=== PATIENT | male | born 2000 | race Caucasian/White ===

== ENCOUNTER 2018-01-08 19:33 | Emergency (ER) | payer BC ==
[~2018-01-08] VITALS: Ht 188 cm; Wt 75.9 kg
[2018-01-08 19:46] VITALS: TEMP 36.6; Ht 188 cm; Wt 75.9 kg
--- NOTE | 2018-01-08 21:52 | DIAGNOSTIC IMAGING REPORT ---
(TESTICULAR) SCROTUM-CONT HISTORY: Pain Left testicle pain COMPARISON: None. FINDINGS: Right testis: Maximum dimension 5.1 cm. Normal vascular flow Left testis: Maximum dimension 4.6 cm. Normal vascular flow IMPRESSION: Normal testicular ultrasound. The above report was generated using voice recognition software. It may contain grammatical, syntax or spelling errors. Electronically signed by: Pedro Singh M.D. 01/08/2018 9:51 PM Dictated Date/Time: 01/08/2018 9:50 PM
[2018-01-08 22:39] VITALS: BP 120/59; PULSE 75; O2SAT 98
--- NOTE | 2018-01-08 23:11 | EMERGENCY ROOM VISIT NOTE ---
History First contact with patient: 19:53 Chief Complaint: TESTICULAR PAIN Stated Complaint: TESTICULAR PAIN AND LUMP Nursing Triage Summary: patient reports testicular pain since Wednesday History of Present Illness The patient is a 17 year old male who presents to the Emergency Room with complaints of left testicle pain for the past 3-4 days. The patient states the discomfort is intermittent and dull. At one point he felt like he may have had a lump or a mass on the testicle, and when the pain returns today he elected to come to the ER for evaluation. The patient is sexually active, and evidently monogamous with this partner. He reports about a week ago he went to an urgent care clinic with the symptoms, was diagnosed with urethritis, and was given Zithromax and Rocephin. No imaging studies were performed at that time. The patient has been using the bathroom is normal, and he is without urethral drainage, discharge, or pain. He does not have abdominal or back pain. No hematuria. He rates his discomfort at this time is 0/10. Review of Systems More than 10 systems were reviewed and otherwise negative with the exception of history of present illness. Past Medical/Surgical History No pertinent chronic medical disease Family History No pertinent family history Social History Smoking Status: Never Smoker Occupation Status: [employer] student Current/Historical Medications No Active Prescriptions or Reported Meds Physical Exam Vital Signs Date Time Temp Pulse Resp B/P (MAP) Pulse Ox O2 Delivery O2 Flow Rate FiO2 01/08/18 22:39 75 18 120/59 98 01/08/18 19:46 36.6 82 18 121/73 96 Room Air Physical Exam VITALS: Vitals are noted on the nurse's note and reviewed by myself. Vital signs stable. GENERAL: Well-developed, well-nourished, white male, who is in no acute distress and resting comfortably. Patient is cooperative with the examination. HEART: Regular rate and rhythm without murmurs gallops or rubs. LUNGS: Clear to auscultation bilaterally without wheezes, rales or rhonchi. No retractions or accessory muscle use. ABDOMEN: Positive normal bowel sounds x 4. Soft, nontender, without masses or organomegaly. No guarding or rebound tenderness. : Normal-appearing external male genitalia without urethral drainage, discharge, or lesion. No significant testicle tenderness, mass, or lesions noted. No hernia or lower abdominal pain noted. Medical Decision & Procedures ER Provider Diagnostic Interpretation: (TESTICULAR) SCROTUM-CONT HISTORY: Pain Left testicle pain COMPARISON: None. FINDINGS: Right testis: Maximum dimension 5.1 cm. Normal vascular flow Left testis: Maximum dimension 4.6 cm. Normal vascular flow IMPRESSION: Normal testicular ultrasound. ED Course Physical exam and history were performed. Nursing notes, EMR, and Medication List were personally reviewed. Patient appears to have testicle pain primarily on the left for the past few days. His discomfort at the moment is a 0/10. He was recently treated for urethritis, but has not had ultrasound. Ultrasound was performed and is without significant acute findings. Overall the patient appears well for discharge home. He will need to follow with [facility] for further care and management. He was otherwise asked to try conservative over- the-counter medication. The patient was pleased with this plan and voiced understanding. The chart was completed utilizing [employer] Voice Recognition Software. Grammatical errors, random word insertions, pronoun errors, and incomplete sentences are an occasional consequence of this system due to software limitations, ambient noise, and hardware issues. Any formal questions or concerns about the content, text, or information contained within the body of this dictation should be directly addressed to the provider for clarification. . Medical Decision Differential diagnosis: Etiologies such as torsion, intermittent torsion, STD, mass, infection, hernia, hydrocele, epididymitis, trauma, intra-abdominal process, as well as others were entertained. Impression Primary Impression: Pain in testicle Departure Information Dispostion Home / Self-Care Condition GOOD Prescriptions No Active Prescriptions or Reported Meds Forms HOME CARE DOCUMENTATION FORM, IMPORTANT VISIT INFORMATION Patient Instructions [facility] Additional Instructions You were seen and evaluated today on an emergency basis only. This is not a substitute for, or an effort to provide, complete comprehensive medical care. It is not possible to recognize and treat all injuries or illnesses in a single emergency department visit. For this reason it is recommended that you followup with [facility] next week with any ongoing or persisting symptoms. For baseline pain relief you may alternate ibuprofen and acetaminophen every 4 hours for pain control. Take 600 mg ibuprofen (Advil) and then 4 hours later take 1000 mg acetaminophen (Tylenol). Do not take more than 3000 mg acetaminophen in a single day. You are welcome to return to the emergency department anytime with new, worsening, or concerning symptoms.
== END 2018-01-08 22:40 | disposition home or self-care (01) ==
LOC: C.EDB 19:35 → C.EDC 22:40
DX: N50.819 Testicular pain, unspecified (principal)